=== PATIENT | female | born 1995 | race Caucasian/White ===

== ENCOUNTER → 2017-12-15 | Outpatient (CLI) | payer BC ==
[~2017-12-15] MED LIST: NKHM
--- NOTE | ~2017-12-15 | HM ---
[place], [place] HOLTER MONITOR REPORT NAME: AVTAR BALLARD UNIT #: [id number] ROOM: DOCTOR: SHANNON RIGGS MD BIRTHDATE: [birth year] DOS: 12/15/2017 A 24-HOUR MONITOR REPORT REFERRED BY: Dr. Paulo Reid for evaluation of palpitations. PROCEDURE: The patient was monitored utilizing a Holter device from December 15 through the 12/16/2017. The recording was analyzed and is being dictated on 12/16/2017. FINDINGS: The patient was in sinus rhythm during the entire examination. Average heart rate was 75 with heart rates varying from 47 to 174 in sinus rhythm. There were no ventricular arrhythmias noted. The patient had occasional premature atrial contractions and periods of sinus arrhythmia. There was no SVT or prolonged pause recorded. The patient did note that her heart was pounding on 2 occasions while she was sleeping. On both occasions, she was in sinus rhythm with a rate of about 70. No arrhythmias were noted with symptoms. IMPRESSION: Normal 24-hour Holter monitor for the patient's age. SHANNON RIGGS MD CM:HOLTER:HOLTER MONITOR REPORT [id number] SHANNON RIGGS MD
== END | disposition home or self-care (01) ==
LOC: CARD 08:57
DX: R00.2 Palpitations (principal)

== ENCOUNTER → 2019-11-10 | Outpatient (CLI) | payer OTHER ==
[2019-11-10 19:12] LABS: HEMATOCRIT 38.5 % (37.0-47.0); HEMOGLOBIN 12.1 g/dl (12.0-16.0); MEAN CELL VOLUME 94.4 fl (81.0-99.0); MEAN CORPUSCULAR HGB 29.7 pg (27.0-31.0); MEAN CORPUSCULAR HGB CONC 31.4 g/dl (33.0-37.0); MEAN PLATELET VOLUME 10.5 fl (9.6-12.3); RED BLOOD COUNT 4.08 10*6/uL (4.10-5.10); RED CELL DISTRI WIDTH 12.4 % (0-14.5)
[2019-11-10 19:30] LABS: ALBUMIN 4.3 gm/dl (3.1-4.5); ALKALINE PHOSPHATASE 74 U/L (45-117); BUN 13 mg/dl (7-24); CHLORIDE 107 mmol/L (98-107); CHOLESTEROL 203 mg/dL (<200); CREATININE 0.78 mg/dL (0.55-1.02); HDL CHOLESTEROL 74 mg/dl (40-60); LDL CHOLESTEROL 119 mg/dL (9-159); POTASSIUM 3.5 mmol/L (3.5-5.1); SGOT/AST 13 IU/L (3-35); SGPT/ALT 25 U/L (12-78); SODIUM 138 mmol/L (136-145); TOTAL PROTEIN 8.2 gm/dL (6.4-8.2); TRIGLYCERIDES 51 mg/dl (<150); VLDL CHOLESTEROL 10 mg/dL (6-40)
[2019-11-12 13:05] LABS: TESTOSTERONE FREE, (DIRECT) 2.1 pg/mL (0.0-4.2)
== END | disposition home or self-care (01) ==
LOC: LAB 18:28
PROVIDERS: Family Medicine
DX: E55.9 Vitamin D deficiency, unspecified (principal); E78.00 Pure hypercholesterolemia, unspecified; R53.83 Other fatigue; R63.5 Abnormal weight gain

== ENCOUNTER → 2021-08-01 | Outpatient (CLI) | payer OTHER | END | disposition home or self-care (01) | LOC: LAB 15:59 | PROVIDERS: ATTEND Family Medicine | DX: Z32.01 Encounter for pregnancy test, result positive (principal) ==

== ENCOUNTER → 2021-08-03 | Outpatient (CLI) | payer OTHER | END | disposition home or self-care (01) | LOC: LAB 15:03 | PROVIDERS: ATTEND Family Medicine | DX: Z32.01 Encounter for pregnancy test, result positive (principal) ==

== ENCOUNTER → 2021-08-05 | Outpatient (CLI) | payer OTHER | END | disposition home or self-care (01) | LOC: LAB 17:20 | PROVIDERS: ATTEND Family Medicine | DX: Z32.01 Encounter for pregnancy test, result positive (principal) ==